=== PATIENT | male | born 1985 | race Caucasian/White ===

== ENCOUNTER 2018-01-20 10:51 | Emergency (ER) | payer OTHER ==
[~2018-01-20] VITALS: Ht 188 cm; Wt 95.3 kg
[2018-01-20 11:01] VITALS: BP_SYST 133
[2018-01-20] MEDS ORDERED: KETOROLAC TROMETHAMINE 60 MG/2 ML VIAL IM ONE (11:15)
[2018-01-20] MEDS ORDERED: MORPHINE 4 MG/ML INJ. SYRINGE IM ONE (11:45)
[2018-01-20 12:14] VITALS: BP_SYST 120
== END 2018-01-20 12:14 | disposition home or self-care (01) ==
LOC: SED 10:51
DX: S61.412D Laceration without foreign body of left hand, subsequent encounter (principal); L08.9 Local infection of the skin and subcutaneous tissue, unspecified; J45.909 Unspecified asthma, uncomplicated; F17.210 Nicotine dependence, cigarettes, uncomplicated; Z88.4 Allergy status to anesthetic agent; X58.XXXD Exposure to other specified factors, subsequent encounter
CPT/HCPCS: 96372; 99284; J1885; J2270